=== PATIENT | female | born 1940 | race Caucasian/White ===

== ENCOUNTER 2020-04-07 22:50 | Observation (INO) ==
[2020-04-08] MEDS ORDERED: niCARdipine INJ 25 MG in SODIUM CHLORIDE 0.9% 240 ML IV PRN (00:08)
[2020-04-08] MEDS ORDERED: fentaNYL 100 MCG/2 ML VIAL IV STA (00:08)
[2020-04-08] MEDS ORDERED: niCARdipine 25 MG/10 ML VIAL IV ONE (00:19)
[2020-04-08] MEDS ORDERED: GLUCAGON 1 MG VIAL IM PRN (01:04)
[2020-04-08] MEDS ORDERED: DEXTROSE 50% 25 GM/50 ML VIAL IV PRN (01:04)
[2020-04-08] MEDS ORDERED: guaiFENesin/DM ER 600-30 MG TABLET PO PRN (01:09)
[2020-04-08] MEDS ORDERED: NICOTINE 21 MG/24 HR PATCH TRANSDERM PRN (01:09)
[2020-04-08] MEDS ORDERED: ACETAMINOPHEN 325 MG TABLET PO PRN (01:09)
[2020-04-08] MEDS ORDERED: ONDANSETRON 4 MG/2 ML VIAL IV PRN (01:09)
[2020-04-08] MEDS: MORPHINE 4 MG/1 ML VIAL IV PRN ×2 (01:49→05:03)
[2020-04-08 06:33] LABS: Basophils # 0.1 10*3/uL (0.0-0.2); Basophils % 0.5 % (0.0-0.8); Hematocrit 38.3 VOL% (35.7-47.0); Hemoglobin 12.8 GM/DL (12.0-16.0); Immature Granulocytes % 0.2 %; Immature Granulocytes Absolute 0.02 #; Lymphocytes # 2.2 10*3/uL (1.4-4.0); Lymphocytes % 23.6 % (21.3-54.2); Mean Corpuscular HGB Conc 33.4 GM/DL (32-36); Mean Corpuscular Volume 89.3 FL (87-102); Mean Platelet Volume 10.3 FL (9.6-12.0); Neutrophils % 69.7 % (38.7-73.9); Platelet Count 253 T/CUMM (130-400); Red Blood Count 4.29 MC/CUMM (3.8-5.5); Red Cell Distribution Width 13.5 % (9.3-17.3); White Blood Count 9.1 T/CUMM (4-12)
[2020-04-08 07:02] LABS: Albumin 3.8 G/DL (3.4-5.0); Bilirubin,Total 1.2 MG/DL (0.2-1.0); Calcium 11.2 MG/DL (8.5-10.1); Osmolality,Calculated 281.1 MOS/KG (273-304); Total Protein 7.7 G/DL (6.4-8.3)
[2020-04-08] MEDS: glipiZIDE 10 MG TABLET PO SCH ×2 (09:06→20:42)
[2020-04-08] MEDS: carvediloL 6.25 MG TABLET PO SCH ×2 (09:07→20:42)
[2020-04-08] MEDS: PANTOPRAZOLE 40 MG TABLET PO SCH ×2 (09:07→20:42)
[2020-04-08] MEDS: GABAPENTIN 300 MG CAPSULE PO SCH ×3 (09:07→20:42)
[2020-04-08] MEDS: MULTIVITAMIN (CENTRUM) TABLET PO SCH (09:07)
[2020-04-08] MEDS: CYANOCOBALAMIN 500 MCG TABLET PO SCH (09:07)
[2020-04-08] MEDS: lisinopriL 20 MG TABLET PO SCH (09:07)
[2020-04-08] MEDS: ASPIRIN EC 81 MG TABLET PO SCH (09:07)
[2020-04-08] MEDS: INSULIN REGULAR 100 UNIT/ML SUBCUT SCH ×4 (09:08→20:42)
[2020-04-08] MEDS: metFORMIN 500 MG TABLET PO SCH ×2 (09:08→20:42)
[2020-04-08] MEDS ORDERED: MORPHINE 4 MG/1 ML VIAL IV PRN (10:38)
[2020-04-08] MEDS: DOXYCYCLINE HYCLATE INJ 100 MG in SODIUM CHLORIDE 0.9% 100 ML IV SCH (13:13)
[2020-04-08] MEDS: SIMVASTATIN 80 MG TABLET PO SCH (20:42)
[2020-04-09] MEDS: DOXYCYCLINE HYCLATE INJ 100 MG in SODIUM CHLORIDE 0.9% 100 ML IV SCH ×2 (00:32→13:22)
[2020-04-09] MEDS: GABAPENTIN 300 MG CAPSULE PO SCH ×3 (09:56→20:37)
[2020-04-09] MEDS: glipiZIDE 10 MG TABLET PO SCH ×2 (09:56→20:37)
[2020-04-09] MEDS: lisinopriL 20 MG TABLET PO SCH (09:56)
[2020-04-09] MEDS: INSULIN REGULAR 100 UNIT/ML SUBCUT SCH ×4 (09:56→20:37)
[2020-04-09] MEDS: CYANOCOBALAMIN 500 MCG TABLET PO SCH (09:56)
[2020-04-09] MEDS: MULTIVITAMIN (CENTRUM) TABLET PO SCH (09:56)
[2020-04-09] MEDS: metFORMIN 500 MG TABLET PO SCH ×2 (09:57→20:37)
[2020-04-09] MEDS: carvediloL 6.25 MG TABLET PO SCH ×2 (09:57→20:36)
[2020-04-09] MEDS: PANTOPRAZOLE 40 MG TABLET PO SCH ×2 (09:57→20:37)
[2020-04-09] MEDS: ASPIRIN EC 81 MG TABLET PO SCH (09:57)
[2020-04-09] MEDS: diphenhydrAMINE CAP 25 MG CAPSULE PO PRN ×2 (10:05→20:36)
[2020-04-09] MEDS: SIMVASTATIN 80 MG TABLET PO SCH (20:36)
[2020-04-10] MEDS: DOXYCYCLINE HYCLATE INJ 100 MG in SODIUM CHLORIDE 0.9% 100 ML IV SCH ×2 (00:03→12:02)
[2020-04-10] MEDS: glipiZIDE 10 MG TABLET PO SCH (08:45)
[2020-04-10] MEDS: carvediloL 6.25 MG TABLET PO SCH (08:45)
[2020-04-10] MEDS: PANTOPRAZOLE 40 MG TABLET PO SCH (08:45)
[2020-04-10] MEDS: MULTIVITAMIN (CENTRUM) TABLET PO SCH (08:45)
[2020-04-10] MEDS: ASPIRIN EC 81 MG TABLET PO SCH (08:45)
[2020-04-10] MEDS: lisinopriL 20 MG TABLET PO SCH (08:46)
[2020-04-10] MEDS: CYANOCOBALAMIN 500 MCG TABLET PO SCH (08:46)
[2020-04-10] MEDS: GABAPENTIN 300 MG CAPSULE PO SCH (08:46)
[2020-04-10] MEDS: metFORMIN 500 MG TABLET PO SCH (08:47)
[2020-04-10] MEDS: INSULIN REGULAR 100 UNIT/ML SUBCUT SCH ×2 (09:36→13:21)
[2020-04-10 12:06] VITALS: BP 140/40
== END 2020-04-10 13:54 | disposition home or self-care (01) ==
LOC: N.EDINP 22:50 → N.ED 22:50 → SUATTDRO 04-08 01:09 → N.TELES 04-08 03:11
PROVIDERS: ADMIT Hospitalist; ATTEND Internal Medicine

== ENCOUNTER 2021-03-31 12:27 | Observation (INO) ==
[2021-03-31] MEDS ORDERED: ASPIRIN 325 MG TABLET PO STA (12:54)
[2021-03-31 13:07] LABS: Basophils # 0.1 10*3/uL (0.0-0.2); Basophils % 0.7 % (0.0-0.8); Eosinophils # 0.5 10*3/uL (0.0-0.87); Eosinophils % 6.6 % (0.00-10.9); Hematocrit 33.9 VOL% (35.7-47.0); Hemoglobin 11.3 GM/DL (12.0-16.0); Immature Granulocytes % 0.4 %; Immature Granulocytes Absolute 0.03 #; Lymphocytes # 2.5 10*3/uL (1.4-4.0); Lymphocytes % 33.1 % (21.3-54.2); Mean Corpuscular HGB Conc 33.3 GM/DL (32-36); Mean Corpuscular Volume 86.5 FL (87-102); Mean Platelet Volume 10.4 FL (9.6-12.0); Monocytes % 6.1 % (1.7-12.7); Neutrophils % 53.1 % (38.7-73.9); Platelet Count 287 T/CUMM (130-400); Red Blood Count 3.92 MC/CUMM (3.8-5.5); Red Cell Distribution Width 13.9 % (9.3-17.3); White Blood Count 7.7 T/CUMM (4-12)
[2021-03-31] MEDS: NITROGLYCERIN SL 0.4 MG TABLET SL PRN ×3 (13:24→21:12)
[2021-03-31 13:28] LABS: Osmolality,Calculated 287.1 MOS/KG (273-304); Potassium 4.2 MMOL/L (3.5-5.1)
[2021-03-31] MEDS ORDERED: MAGNESIUM SULF RIDER 2 GM/50 ML PREMIX IV PRN (14:36)
[2021-03-31] MEDS ORDERED: POTASSIUM CHLORIDE 20 MEQ TABLET PO PRN (14:36)
[2021-03-31] MEDS ORDERED: ONDANSETRON 4 MG/2 ML VIAL IV PRN (14:36)
[2021-03-31] MEDS ORDERED: MORPHINE 2 MG/1 ML SYRINGE IV PRN (14:36)
[2021-03-31] MEDS ORDERED: MAGNESIUM SULF RIDER 4 GM/100 ML PREMIX IV PRN (14:36)
[2021-03-31] MEDS: ENOXAPARIN 40 MG/0.4 ML SYRINGE SUBCUT SCH (16:22)
[2021-03-31] MEDS: SODIUM CHLORIDE 0.45% 1,000 ML IV SCH ×2 (16:23→21:18)
[2021-03-31] MEDS: glipiZIDE 10 MG TABLET PO SCH (18:01)
[2021-03-31] MEDS: ROSUVASTATIN 20 MG TABLET PO SCH (21:12)
[2021-04-01 01:58] LABS: Risk Ratio 4.1; VLDL Cholesterol 40.2 MG/DL
[2021-04-01] MEDS: ENOXAPARIN 40 MG/0.4 ML SYRINGE SUBCUT SCH ×2 (04:38→14:12)
[2021-04-01] MEDS: NITROGLYCERIN SL 0.4 MG TABLET SL PRN ×2 (04:39→04:50)
[2021-04-01] MEDS ORDERED: ISOSORBIDE MONONITRATE 30 MG TABLET PO SCH (09:00)
[2021-04-01] MEDS: METOPROLOL SUCCINATE XL 50 MG TABLET PO SCH (09:31)
[2021-04-01] MEDS: ASPIRIN EC 81 MG TABLET PO SCH (09:31)
[2021-04-01] MEDS: CYANOCOBALAMIN 500 MCG TABLET PO SCH (09:32)
[2021-04-01] MEDS: PANTOPRAZOLE 40 MG TABLET PO SCH (09:32)
[2021-04-01] MEDS: glipiZIDE 10 MG TABLET PO SCH ×2 (09:32→17:11)
[2021-04-01] MEDS: CLOPIDOGREL 75 MG TABLET PO SCH (09:32)
[2021-04-01] MEDS: MULTIVITAMIN (CENTRUM) TABLET PO SCH (09:32)
[2021-04-01] MEDS: lisinopriL 20 MG TABLET PO SCH (09:32)
[2021-04-01] MEDS: ISOSORBIDE MONONITRATE 60 MG TABLET PO SCH (09:36)
[2021-04-01] MEDS: INSULIN REGULAR 100 UNIT/ML SUBCUT SCH ×3 (12:21→21:14)
[2021-04-01] MEDS: SODIUM CHLORIDE 0.45% 1,000 ML IV SCH (13:24)
[2021-04-01] MEDS: RANOLAZINE 500 MG TABLET PO SCH ×2 (14:12→21:14)
[2021-04-01] MEDS: ROSUVASTATIN 20 MG TABLET PO SCH (21:14)
[2021-04-02] MEDS: ENOXAPARIN 40 MG/0.4 ML SYRINGE SUBCUT SCH (04:35)
[2021-04-02 05:06] LABS: Basophils # 0.1 10*3/uL (0.0-0.2); Basophils % 0.7 % (0.0-0.8); Eosinophils # 0.5 10*3/uL (0.0-0.87); Eosinophils % 7.7 % (0.00-10.9); Hematocrit 31.3 VOL% (35.7-47.0); Hemoglobin 10.1 GM/DL (12.0-16.0); Immature Granulocytes % 0.1 %; Immature Granulocytes Absolute 0.01 #; Lymphocytes # 2.4 10*3/uL (1.4-4.0); Lymphocytes % 35.3 % (21.3-54.2); Mean Corpuscular HGB Conc 32.3 GM/DL (32-36); Mean Corpuscular Volume 89.7 FL (87-102); Mean Platelet Volume 10.8 FL (9.6-12.0); Monocytes % 8.1 % (1.7-12.7); Neutrophils % 48.1 % (38.7-73.9); Platelet Count 244 T/CUMM (130-400); Red Blood Count 3.49 MC/CUMM (3.8-5.5); Red Cell Distribution Width 14.1 % (9.3-17.3); White Blood Count 6.8 T/CUMM (4-12)
[2021-04-02 05:27] LABS: Calcium 10.6 MG/DL (8.5-10.1); Osmolality,Calculated 285.3 MOS/KG (273-304); Potassium 3.8 MMOL/L (3.5-5.1)
[2021-04-02] MEDS: SODIUM CHLORIDE 0.45% 1,000 ML IV SCH (08:56)
[2021-04-02] MEDS: MULTIVITAMIN (CENTRUM) TABLET PO SCH (09:02)
[2021-04-02] MEDS: lisinopriL 20 MG TABLET PO SCH (09:02)
[2021-04-02] MEDS: ISOSORBIDE MONONITRATE 60 MG TABLET PO SCH (09:02)
[2021-04-02] MEDS: RANOLAZINE 500 MG TABLET PO SCH (09:02)
[2021-04-02] MEDS: METOPROLOL SUCCINATE XL 50 MG TABLET PO SCH (09:03)
[2021-04-02] MEDS: INSULIN REGULAR 100 UNIT/ML SUBCUT SCH ×2 (09:03→12:31)
[2021-04-02] MEDS: ASPIRIN EC 81 MG TABLET PO SCH (09:03)
[2021-04-02] MEDS: CLOPIDOGREL 75 MG TABLET PO SCH (09:03)
[2021-04-02] MEDS: CYANOCOBALAMIN 500 MCG TABLET PO SCH (09:03)
[2021-04-02] MEDS: PANTOPRAZOLE 40 MG TABLET PO SCH (09:03)
[2021-04-02] MEDS: glipiZIDE 10 MG TABLET PO SCH (09:09)
[2021-04-02 12:32] VITALS: BP 128/59
== END 2021-04-02 13:41 | disposition home or self-care (01) ==
LOC: EDUNIT# → EDBD → N.ED 12:27 → N.EDINP 12:27 → SUATTDRO 14:36 → N.TELES 17:34
PROVIDERS: ADMIT Internal Medicine Cardiovascular Disease; ATTEND Internal Medicine Cardiovascular Disease

== ENCOUNTER 2022-03-03 16:57 | Inpatient (IN) ==
[2022-03-03 18:00] LABS: Basophils # 0.1 10*3/uL (0.0-0.2); Basophils % 0.7 % (0.0-0.8); Eosinophils # 0.5 10*3/uL (0.0-0.87); Eosinophils % 7.3 % (0.00-10.9); Hematocrit 31.9 VOL% (35.7-47.0); Hemoglobin 10.2 GM/DL (12.0-16.0); Immature Granulocytes % 0.3 %; Immature Granulocytes Absolute 0.02 #; Lymphocytes # 2.2 10*3/uL (1.4-4.0); Lymphocytes % 32.5 % (21.3-54.2); Mean Corpuscular Volume 82.2 FL (87-102); Mean Platelet Volume 10.5 FL (9.6-12.0); Monocytes # 0.5 10*3/uL (0.11-0.8); Monocytes % 7.3 % (1.7-12.7); Neutrophils % 51.9 % (38.7-73.9); Platelet Count 248 T/CUMM (130-400); Red Blood Count 3.88 MC/CUMM (3.8-5.5); Red Cell Distribution Width 15.1 % (9.3-17.3); White Blood Count 6.7 T/CUMM (4-12)
[2022-03-03] MEDS ORDERED: LABETALOL 20 MG/4 ML SYRINGE IV STA (18:21)
[2022-03-03 18:38] LABS: Alanine Aminotransferase 19 U/L (13-56); Albumin 3.3 G/DL (3.4-5.0); Alkaline Phosphatase 85 U/L (45-117); Aspartate Amino Transferase 12 U/L (0-37); Blood Urea Nitrogen 16 MG/DL (7-18); Calcium 9.2 MG/DL (8.5-10.1); Carbon Dioxide 24 MMOL/L (21-32); Chloride 110 MMOL/L (98-107); Glucose 154 MG/DL (74-106); Potassium 3.2 MMOL/L (3.5-5.1); Sodium 143 MMOL/L (136-145); Total Protein 7.1 G/DL (6.4-8.2)
[2022-03-03] MEDS ORDERED: hydrALAZINE 20 MG/1 ML VIAL IV STA (19:10)
[2022-03-03] MEDS ORDERED: POTASSIUM CHLORIDE 20 MEQ TABLET PO STA (19:36)
[2022-03-03] MEDS ORDERED: ONDANSETRON 4 MG/2 ML VIAL IV ONE (20:27)
[2022-03-03] MEDS ORDERED: MORPHINE 2 MG/1 ML SYRINGE IV STA (20:27)
[2022-03-03] MEDS ORDERED: DEXTROSE 10% 250 ML BAG IV PRN (22:31)
[2022-03-03] MEDS ORDERED: GLUCAGON 1 MG VIAL IM PRN (22:31)
[2022-03-03] MEDS ORDERED: hydrALAZINE 20 MG/1 ML VIAL IV PRN (22:31)
[2022-03-03] MEDS ORDERED: ACETAMINOPHEN 325 MG TABLET PO PRN (22:31)
[2022-03-03] MEDS ORDERED: ONDANSETRON 4 MG/2 ML VIAL IV PRN (22:31)
[2022-03-03] MEDS ORDERED: NITROGLYCERIN SL 0.4 MG TABLET SL PRN (22:35)
[2022-03-03] MEDS ORDERED: SODIUM CHLORIDE 0.45% 1,000 ML IV SCH (23:00)
[2022-03-03] MEDS ORDERED: oxyCODONE/ACETAMINOPHEN 5-325 MG TABLET PO PRN (23:09)
[2022-03-04 01:48] LABS: Basophils % 0.5 % (0.0-0.8); Eosinophils # 0.2 10*3/uL (0.0-0.87); Eosinophils % 2.9 % (0.00-10.9); Hematocrit 32.1 VOL% (35.7-47.0); Immature Granulocytes % 0.4 %; Immature Granulocytes Absolute 0.03 #; Lymphocytes # 1.7 10*3/uL (1.4-4.0); Lymphocytes % 22.4 % (21.3-54.2); Mean Corpuscular HGB Conc 31.2 GM/DL (32-36); Mean Corpuscular Volume 83.2 FL (87-102); Mean Platelet Volume 10.5 FL (9.6-12.0); Monocytes # 0.6 10*3/uL (0.11-0.8); Monocytes % 7.2 % (1.7-12.7); Neutrophils % 66.6 % (38.7-73.9); Platelet Count 240 T/CUMM (130-400); Red Blood Count 3.86 MC/CUMM (3.8-5.5); Red Cell Distribution Width 15.2 % (9.3-17.3); White Blood Count 7.6 T/CUMM (4-12)
[2022-03-04 02:16] LABS: Bilirubin,Total 0.4 MG/DL (0.20-1.00); Calcium 9.3 MG/DL (8.5-10.1); Osmolality,Calculated 287.4 MOS/KG (273-304); Potassium 3.9 MMOL/L (3.5-5.1); Risk Ratio 3.37; Total Protein 6.7 G/DL (6.4-8.2); VLDL Cholesterol 19.8 MG/DL
[2022-03-04] MEDS ORDERED: DEXTROSE 50% 25 GM/50 ML VIAL IV PRN (07:32)
[2022-03-04] MEDS ORDERED: GLUCAGON 1 MG VIAL IM PRN (07:32)
[2022-03-04] MEDS: INSULIN REGULAR 100 UNIT/ML SUBCUT SCH ×4 (08:05→21:07)
[2022-03-04] MEDS: SUCRALFATE 1 GM TABLET PO SCH ×4 (08:43→21:06)
[2022-03-04] MEDS: PANTOPRAZOLE 40 MG TABLET PO SCH (08:44)
[2022-03-04] MEDS: ROSUVASTATIN 20 MG TABLET PO SCH (08:44)
[2022-03-04] MEDS: CALCIUM (CARBONATE)/VITAMIN D 600 MG-400 UNIT TABLET PO SCH ×2 (08:44→21:06)
[2022-03-04] MEDS: glipiZIDE 10 MG TABLET PO SCH ×2 (08:44→21:06)
[2022-03-04] MEDS: METOPROLOL SUCCINATE XL 50 MG TABLET PO SCH (08:44)
[2022-03-04] MEDS: MULTIVITAMIN (CENTRUM) TABLET PO SCH (08:44)
[2022-03-04] MEDS ORDERED: ISOSORBIDE MONONITRATE 30 MG TABLET PO SCH (09:00)
[2022-03-04] MEDS ORDERED: lisinopriL 20 MG TABLET PO SCH (09:00)
[2022-03-04] MEDS: lisinopriL 20 MG TABLET PO SCH (21:06)
[2022-03-05 04:44] LABS: Basophils # 0.1 10*3/uL (0.0-0.2); Eosinophils # 0.7 10*3/uL (0.0-0.87); Eosinophils % 9.3 % (0.00-10.9); Hematocrit 31.9 VOL% (35.7-47.0); Hemoglobin 9.7 GM/DL (12.0-16.0); Immature Granulocytes % 0.3 %; Immature Granulocytes Absolute 0.02 #; Lymphocytes # 2.2 10*3/uL (1.4-4.0); Lymphocytes % 31.2 % (21.3-54.2); Mean Corpuscular HGB Conc 30.4 GM/DL (32-36); Mean Corpuscular Volume 86.7 FL (87-102); Mean Platelet Volume 10.6 FL (9.6-12.0); Monocytes # 0.6 10*3/uL (0.11-0.8); Monocytes % 8.4 % (1.7-12.7); Neutrophils % 49.8 % (38.7-73.9); Platelet Count 254 T/CUMM (130-400); Red Blood Count 3.68 MC/CUMM (3.8-5.5); Red Cell Distribution Width 15.6 % (9.3-17.3); White Blood Count 7.2 T/CUMM (4-12)
[2022-03-05 05:10] LABS: Calcium 9.3 MG/DL (8.5-10.1); Osmolality,Calculated 288.1 MOS/KG (273-304)
[2022-03-05] MEDS ORDERED: ASPIRIN EC 81 MG TABLET PO SCH (09:00)
[2022-03-05] MEDS ORDERED: ISOSORBIDE MONONITRATE 60 MG TABLET PO SCH (09:00)
[2022-03-05] MEDS: MULTIVITAMIN (CENTRUM) TABLET PO SCH (10:48)
[2022-03-05] MEDS: glipiZIDE 10 MG TABLET PO SCH (10:48)
[2022-03-05] MEDS: ROSUVASTATIN 20 MG TABLET PO SCH (10:48)
[2022-03-05] MEDS: SUCRALFATE 1 GM TABLET PO SCH ×2 (10:48→12:46)
[2022-03-05] MEDS: lisinopriL 20 MG TABLET PO SCH (10:49)
[2022-03-05] MEDS: PANTOPRAZOLE 40 MG TABLET PO SCH (10:49)
[2022-03-05] MEDS: METOPROLOL SUCCINATE XL 50 MG TABLET PO SCH (10:49)
[2022-03-05] MEDS: INSULIN REGULAR 100 UNIT/ML SUBCUT SCH ×2 (10:50→12:48)
[2022-03-05] MEDS: CALCIUM (CARBONATE)/VITAMIN D 600 MG-400 UNIT TABLET PO SCH (11:04)
[2022-03-05 11:53] VITALS: BP 132/57
== END 2022-03-05 12:53 | disposition home or self-care (01) | DRG 305 ==
LOC: N.ED 16:57 → N.TELES 16:57 → SUATTDRO 03-04 09:01
PROVIDERS: ADMIT Internal Medicine; ATTEND Internal Medicine Geriatric Medicine